=== PATIENT | female | born 1980 | race Caucasian/White ===

== ENCOUNTER 2024-11-17 18:38 | Emergency (ER) | payer BC ==
[2024-11-17 21:00] LABS: #Basophils 0.04 10x3/uL (0.0-0.2); #Eosinophils 0.39 10x3/uL (0.0-0.7); #Monocytes 0.55 10x3/uL (0.11-0.59); #Neutrophils 5.85 10x3/uL (1.40-6.50); %Basophils 0.4 % (0.0-1.0); %Eosinophils 4.2 % (0.0-10.0); %Lymphocytes 26.7 % (21.0-51.0); %Monocytes 5.9 % (0.0-10.0); %Neutrophils 62.5 % (42.0-75.0); Hematocrit 38.7 % (36.0-47.0); Hemoglobin 12.0 g/dL (12.0-16.0); Mean Corpuscular Hemoglobin 26.0 pg (27.0-31.0); Mean Corpuscular Volume 83.8 fL (78.0-98.0); Platelet Count 385 10x3/uL (130-400); Red Blood Cell (RBC) Count 4.62 mill/uL (4.20-5.40); White Blood Cell (WBC) Count 9.36 10x3/uL (4.8-10.8)
[2024-11-17 21:15] LABS: ALT (SGPT) 10 U/L (Less than 34); AST (SGOT) 19 U/L (11-34); Albumin 3.9 g/dL (3.1-4.5); Alkaline Phosphatase 89 U/L (40-110); Anion Gap 13 mmol/L (10-20); BUN (Urea Nitrogen) 8 mg/dL (7.0-18.7); Bilirubin, Total 0.2 mg/dL (0.3-1.2); Calc. Creatinine Clearance 0 mL/min (70-130); Calcium 9.3 mg/dL (7.8-10.44); Carbon Dioxide 22 mmol/L (22-29); Chloride 107 mmol/L (98-107); Globulin 3.4 g/dL (2.4-3.5); Glucose 95 mg/dL (70-105); Potassium 4.1 mmol/L (3.5-5.1); Sodium 138 mmol/L (136-145)
== END 2024-11-17 22:56 | disposition home or self-care (01) ==
LOC: ERS 18:38
DX: H53.8 Other visual disturbances (principal); R29.700 NIHSS score 0; E11.9 Type 2 diabetes mellitus without complications
CPT/HCPCS: 36415; 70450; 80053; 85025

== ENCOUNTER 2024-12-15 13:43 | Outpatient (CLI) | payer BC | END 2024-12-15 13:44 | disposition home or self-care (01) | LOC: MRI 13:43 | PROVIDERS: ATTEND Family Medicine | DX: G35.D Multiple sclerosis, unspecified (principal); H53.9 Unspecified visual disturbance | CPT/HCPCS: 70553; 76376 ==